=== PATIENT | male | born 1965 | race Caucasian/White ===

== ENCOUNTER 2017-10-29 11:23 | Inpatient (IN) | payer OTHER ==
[~2017-10-29] VITALS: Ht 172.7 cm; Wt 146.6 kg
[2017-10-29] MEDS ORDERED: METFORMIN HCL1000 MG PO (13:26)
[2017-10-29 13:44] LABS: CALCIUM 9.8 mg/dL (8.5-10.1); CARBON DIOXIDE 23.4 mmol/L (21-32); CHLORIDE SERUM 105 mmol/L (98-107); CREATININE SERUM 0.9 mg/dL (0.7-1.3); GFR1 > 60 mL/min; GLUCOSE SERUM 198 mg/dL (74-106); POTASSIUM SERUM 3.9 mmol/L (3.5-5.1); SODIUM SERUM 136 mmol/L (136-145)
[2017-10-29 13:45] LABS: BASOPHIL % 0.2 % (0-2); PLATELET COUNT 139 x10^3mcL (130-400); RED CELL DISTRIBUTION WIDTH 13.1 % (11.5-14.5)
[2017-10-29 13:48] LABS: ALKALINE PHOSPHATASE 115 U/L (46-116); ALT/SGPT 30 U/L (16-63); AST/SGOT 22 U/L (15-37); BILIRUBIN TOTAL 0.6 mg/dL (0.20-1.00); TOTAL PROTEIN, SERUM 7.8 g/dL (6.4-8.2)
[2017-10-29 14:31] LABS: microscopic required? NO
[2017-10-29 15:50] LABS: urine erythrocyte NEGATIVE (NEGATIVE)
[2017-10-29 16:41] VITALS: BP 164/61
[2017-10-29 17:44] LABS: FREE T4 1.8 ng/dL (0.76-1.46); FREE THYROXINE INDEX 3.3 ug/dL (1.4-4.5); T4(THYROXINE) 10.7 ug/dL (4.7-13.3)
[2017-10-29 18:13] LABS: MAGNESIUM 1.6 mg/dL (1.8-2.4); PHOSPHOROUS 2.6 mg/dL (2.5-4.9)
[2017-10-29 18:14] LABS: CHOLESTEROL/HDL RATIO 3.5
[2017-10-29 21:23] VITALS: BP 171/69
[2017-10-29 22:15] VITALS: BP 157/79
[2017-10-30 03:24] LABS: T3 TOTAL 0.88 ng/mL
[2017-10-30 04:54] VITALS: BP 152/71
[2017-10-30 06:46] LABS: BASOPHIL % 0.3 % (0-2); PLATELET COUNT 130 x10^3mcL (130-400)
[2017-10-30 07:00] LABS: CALCIUM 9.8 mg/dL (8.5-10.1); CARBON DIOXIDE 27.1 mmol/L (21-32); CHLORIDE SERUM 106 mmol/L (98-107); CREATININE SERUM 0.8 mg/dL (0.7-1.3); GFR1 > 60 mL/min; GLUCOSE SERUM 166 mg/dL (74-106); MAGNESIUM 1.7 mg/dL (1.8-2.4); POTASSIUM SERUM 4.1 mmol/L (3.5-5.1); SODIUM SERUM 141 mmol/L (136-145)
[2017-10-30 11:45] VITALS: BP 145/70
[2017-10-30 13:31] VITALS: BP 151/68
[2017-10-30 18:03] VITALS: BP 158/62
[2017-10-30 21:01] VITALS: BP 163/72
[2017-10-30 21:51] VITALS: BP 144/51
[2017-10-31 05:55] VITALS: BP 152/70
[2017-10-31 07:47] LABS: CALCIUM 9.6 mg/dL (8.5-10.1); CARBON DIOXIDE 25.4 mmol/L (21-32); CHLORIDE SERUM 105 mmol/L (98-107); CREATININE SERUM 0.7 mg/dL (0.7-1.3); GFR1 > 60 mL/min; GLUCOSE SERUM 138 mg/dL (74-106); POTASSIUM SERUM 3.9 mmol/L (3.5-5.1); SODIUM SERUM 136 mmol/L (136-145)
[2017-10-31 08:18] LABS: BASOPHIL % 0.3 % (0-2); RED CELL DISTRIBUTION WIDTH 12.8 % (11.5-14.5)
[2017-10-31 08:39] LABS: PLATELET COUNT 124 x10^3mcL (130-400)
[2017-10-31 10:05] VITALS: BP 155/66
[2017-10-31 13:15] VITALS: BP 156/67
[2017-10-31 14:02] VITALS: BP 155/66
[2017-10-31 16:59] VITALS: BP 158/65
[2017-10-31 21:33] VITALS: BP 161/50
[2017-11-01 06:25] VITALS: BP 176/69
[2017-11-01 08:26] LABS: CALCIUM 9.4 mg/dL (8.5-10.1); CARBON DIOXIDE 23.2 mmol/L (21-32); CHLORIDE SERUM 102 mmol/L (98-107); CREATININE SERUM 0.6 mg/dL (0.7-1.3); GFR1 > 60 mL/min; GLUCOSE SERUM 148 mg/dL (74-106); POTASSIUM SERUM 3.7 mmol/L (3.5-5.1); SODIUM SERUM 134 mmol/L (136-145)
[2017-11-01 09:12] LABS: BASOPHIL % 0.3 % (0-2); RED CELL DISTRIBUTION WIDTH 12.4 % (11.5-14.5)
[2017-11-01 09:13] LABS: PLATELET COUNT 113 x10^3mcL (130-400)
[2017-11-01 10:11] VITALS: BP 146/58
[2017-11-01 11:32] VITALS: BP 146/58
[2017-11-01] MEDS ORDERED: METOPROLOL TART25 M1 PO (12:10)
[2017-11-01] MEDS ORDERED: NOR5 PO (12:10)
[2017-11-01] MEDS ORDERED: NORCO1 TA2 PO (12:11)
[2017-11-01] MEDS ORDERED: STOOL SOFTENER100 MG PO (12:11)
[2017-11-01] MEDS ORDERED: AUG500 PO (12:12)
[2017-11-01] MEDS ORDERED: BD LACTINEX1.4 MG PO (12:13)
[2017-11-01] MEDS ORDERED: LISINOPRIL5 MG PO (12:17)
== END 2017-11-01 17:31 | disposition home or self-care (01) | DRG 364 ==
LOC: ED 11:23 → DU 15:34 → MU 15:34 → DU 16:30 → MU 10-31 06:59
PROVIDERS: Emergency Medicine; Family Medicine Sports Medicine
PROC: 0J9P0ZZ Drainage of Left Lower Leg Subcutaneous Tissue and Fascia, Open Approach (ICD-10-PCS; principal; 2017-10-31)
DX: L03.116 Cellulitis of left lower limb (principal); D68.69 Other thrombophilia; E44.0 Moderate protein-calorie malnutrition; E11.65 Type 2 diabetes mellitus with hyperglycemia; E83.42 Hypomagnesemia; Z68.42 Body mass index [BMI] 45.0-49.9, adult; B35.1 Tinea unguium; E66.01 Morbid (severe) obesity due to excess calories; I10 Essential (primary) hypertension; Z79.84 Long term (current) use of oral hypoglycemic drugs
CPT/HCPCS: 82962; 83880; 84439; J0295; J1815; J1885; J2270; J3475; J3490; J7030; J7042; J7050; Q0092

== ENCOUNTER 2019-07-29 04:55 | Emergency (ER) | payer MEDICAID ==
[~2019-07-29] VITALS: Ht 175.3 cm; Wt 138.8 kg
[~2019-07-29 04:55] MED LIST: AUG500 PO; BD LACTINEX1.4 MG PO; LISINOPRIL5 MG PO; METFORMIN HCL1000 MG PO; METOPROLOL TART25 M1 PO; NOR5 PO; NORCO1 TA2 PO; STOOL SOFTENER100 MG PO
[2019-07-29 05:01] VITALS: Ht 175.3 cm; Wt 138.8 kg
[2019-07-29 07:07] VITALS: BP 134/76
== END 2019-07-29 07:07 | disposition home or self-care (01) ==
LOC: ED 04:55
DX: L53.9 Erythematous condition, unspecified (principal); R68.83 Chills (without fever); M79.662 Pain in left lower leg; I10 Essential (primary) hypertension; E11.9 Type 2 diabetes mellitus without complications
CPT/HCPCS: 82962; J0696

== ENCOUNTER 2020-08-12 00:20 | Emergency (ER) | payer MEDICAID ==
[~2020-08-12] VITALS: Ht 175.3 cm; Wt 131.7 kg
[~2020-08-12 00:20] MED LIST changes: +CLEOCIN HCL150 MG PO
[2020-08-12 00:32] VITALS: Ht 175.3 cm; Wt 131.7 kg
[2020-08-12 01:45] LABS: BASOPHIL % 0.4 % (0-2); PLATELET COUNT 156 x10^3mcL (130-400); RED CELL DISTRIBUTION WIDTH 12.8 % (11.5-14.5)
[2020-08-12 01:58] LABS: CALCIUM 10.7 mg/dL (8.5-10.1); CARBON DIOXIDE 28.3 mmol/L (21-32); CHLORIDE SERUM 106 mmol/L (98-107); CREATININE SERUM 0.9 mg/dL (0.7-1.3); GFR1 > 60 mL/min; GLUCOSE SERUM 96 mg/dL (74-106); POTASSIUM SERUM 4.2 mmol/L (3.5-5.1); SODIUM SERUM 138 mmol/L (136-145)
[2020-08-12 02:02] LABS: ALBUMIN 3.3 g/dL (3.4-5.0); ALKALINE PHOSPHATASE 99 U/L (46-116); ALT/SGPT 35 U/L (16-63); AST/SGOT 29 U/L (15-37); BILIRUBIN TOTAL 1.01 mg/dL (0.20-1.00); TOTAL PROTEIN, SERUM 7.8 g/dL (6.4-8.2)
[2020-08-12 04:31] VITALS: BP 133/65
== END 2020-08-12 04:31 | disposition home or self-care (01) ==
LOC: ED 00:20
PROVIDERS: Emergency Medicine
DX: L03.032 Cellulitis of left toe (principal); I10 Essential (primary) hypertension; E11.9 Type 2 diabetes mellitus without complications
CPT/HCPCS: J1885; J2543; J7030; Q0092